=== PATIENT | female | born 1990 | race Caucasian/White ===

== ENCOUNTER → 2017-09-22 11:59 | Outpatient (CLI) | payer OTHER, SELFPAY ==
--- NOTE | 2017-09-22 12:25 | XR_ITS ---
XR chest 2V HISTORY: Follow-up abnormal chest x-ray ITS.REASON: ABNORMAL CHEST XRAY ORDERING PHYSICIAN: Edgard Mccarthy MD PATIENT AGE: 27 years COMPARISON: None available FINDINGS: The cardiomediastinal silhouette and pulmonary vascularity are within normal limits. The lungs are clear without infiltrates, suspicious nodules, or pleural effusions. Their main the densely calcified nodule in the left lower lobe superiorly consistent with a granuloma or hamartoma unchanged No acute bony abnormalities. IMPRESSION: No acute finding. No change partial calcified nodule in the left midlung
[2017-09-22 14:11] LABS: Free Thyroxine Index 2.7 ug/dL (5.93-13.13); T4 (Thyroxine) 8.7 ug/dl (4.7-13.3); Thyroid Stimulating Hormone 1.59 uIU/ml (0.358-3.740); Triiodothryronine (T3) Uptake 31 % (31-39)
[2017-09-25 17:10] LABS: LH 9.1 mIU/mL (.)
== END ==
PROVIDERS: PCP Physician Assistant; Visit Provider Nurse Practitioner Obstetrics & Gynecology
DX: N92.6 Irregular menstruation, unspecified (principal); R93.8 Abnormal findings on diagnostic imaging of other specified body structures
CPT/HCPCS: 36415; 71046; 83001; 83002; 84436; 84443; 84479

== ENCOUNTER → 2019-05-12 11:04 | Outpatient (CLI) | payer OTHER, SELFPAY ==
[2019-05-12 11:32] LABS: Basophils % 0.5 % (0.1-2.0); Eosinophils # 0.1 K/mm3 (0.0-0.4); Eosinophils % 1.7 % (0.1-12.0); Hematocrit 41.7 % (37.0-47.0); Hemoglobin 14.1 g/dL (12.2-16.2); Lymphocytes # 2.1 K/mm3 (0.7-4.5); Lymphocytes % 33.8 % (10-50); Mean Corpuscular HGB Conc 33.7 g/dL (31.8-35.4); Mean Corpuscular Hemoglobin 32.1 pg (27.0-31.2); Mean Corpuscular Volume 95.2 fl (81-99); Mean Platelet Volume 7.6 fl (7.4-10.4); Monocytes # 0.4 K/mm3 (0.1-1.0); Monocytes % 5.9 % (1.7-9.3); Neutrophils # 3.6 K/mm3 (1.8-7.8); Neutrophils % 58.1 % (37.0-80.0); Platelet Count 218 K/mm3 (142-424); Red Blood Count 4.38 M/mm3 (4.20-5.40); Red Cell Distribution Width 12.4 % (11.5-17.5); White Blood Count 6.2 K/mm3 (4.8-10.8)
[2019-05-12 15:13] LABS: Alanine Aminotransferase 37 U/L (12-78); Albumin/Globulin Ratio 1.2 (1.1-1.8); Alkaline Phosphatase 47 U/L (46-116); Anion Gap 11.2 mEq/L (5-15); Aspartate Amino Transferase 25 U/L (15-37); Bilirubin,Total 0.4 mg/dL (0.2-1.0); Blood Urea Nitrogen 10 mg/dL (7-18); Calcium 9.2 mg/dL (8.5-10.1); Carbon Dioxide 28 mmol/L (21.0-32.0); Chloride 104 mmol/L (98-107); Creatinine,Serum 0.85 mg/dL (0.55-1.02); Estimated Glomerular Filt Rate 80 ml/min (>60); Free Thyroxine Index 3.3 ug/dL (5.93-13.13); GFR (African American) 96 ML/MIN (>60); Globulin 3.4 gm/dl (1.3-3.2); Glucose 82 mg/dL (74-106); Potassium 4.2 mmoL/L (3.5-5.1); Sodium 139 mmol/L (136-145); T4 (Thyroxine) 10.4 ug/dl (4.7-13.3); Total Protein,Serum 7.4 gm/dL (6.4-8.2); Triiodothryronine (T3) Uptake 32 % (31-39)
[2019-05-13 14:22] LABS: Rapid Plasma Reagin Ab Titer Non Reactive (NonRea<1:1)
== END ==
PROVIDERS: Visit Provider Nurse Practitioner Obstetrics & Gynecology
DX: B19.20 Unspecified viral hepatitis C without hepatic coma (principal); N92.6 Irregular menstruation, unspecified; R53.82 Chronic fatigue, unspecified
CPT/HCPCS: 36415; 80053; 84436; 84443; 84479; 85025; 86592

== ENCOUNTER → 2019-05-17 14:49 | Outpatient (CLI) | payer OTHER, SELFPAY ==
--- NOTE | 2019-05-17 14:49 | US_ITS ---
PROCEDURE: US TRANSVAGINAL CLINICAL INDICATION: Heavy Bleeding Dysfunctional uterine bleeding COMPARISON: No exams were available for comparison TECHNIQUE: FINDINGS: The uterus is 9 x 5 x 6.4 cm with a combined endometrial thickness of 13 mm. No uterine mass is evident. The left ovary is 2.5 x 2 cm and has an unremarkable appearance. The right ovary is 2.9 x 2.3 cm with a few small follicles. No cul-de-sac fluid evident. IMPRESSION: Bulky uterus with mildly thickened endometrium otherwise negative Dictated by: Phi Ghosh MD 05/17/2019 17:08 Signed by: <Electronically signed by Phi Ghosh MD in [place]> 05/17/2019 17:08
== END ==
PROVIDERS: PCP Family Medicine; Visit Provider Nurse Practitioner Obstetrics & Gynecology
DX: N85.2 Hypertrophy of uterus (principal); N92.6 Irregular menstruation, unspecified
CPT/HCPCS: 76830

== ENCOUNTER → 2019-05-24 08:11 | Outpatient (CLI) | payer OTHER, SELFPAY ==
[2019-05-24 13:34] LABS: Basophils % 0.7 % (0.1-2.0); Eosinophils # 0.2 K/mm3 (0.0-0.4); Eosinophils % 2.9 % (0.1-12.0); Hematocrit 38.7 % (37.0-47.0); Lymphocytes # 1.7 K/mm3 (0.7-4.5); Lymphocytes % 31.4 % (10-50); Mean Corpuscular HGB Conc 33.5 g/dL (31.8-35.4); Mean Corpuscular Hemoglobin 31.9 pg (27.0-31.2); Mean Corpuscular Volume 95.1 fl (81-99); Mean Platelet Volume 7.9 fl (7.4-10.4); Monocytes # 0.4 K/mm3 (0.1-1.0); Monocytes % 6.7 % (1.7-9.3); Neutrophils # 3.2 K/mm3 (1.8-7.8); Neutrophils % 58.4 % (37.0-80.0); Platelet Count 210 K/mm3 (142-424); Red Blood Count 4.07 M/mm3 (4.20-5.40); Red Cell Distribution Width 12.5 % (11.5-17.5); White Blood Count 5.5 K/mm3 (4.8-10.8)
[2019-05-24 13:50] LABS: Alanine Aminotransferase 41 U/L (12-78); Albumin Level 3.6 gm/dL (3.4-5.0); Albumin/Globulin Ratio 1.1 (1.1-1.8); Alkaline Phosphatase 51 U/L (46-116); Anion Gap 12.6 mEq/L (5-15); Aspartate Amino Transferase 23 U/L (15-37); Bilirubin,Total 0.2 mg/dL (0.2-1.0); Blood Urea Nitrogen 13 mg/dL (7-18); Calcium 8.6 mg/dL (8.5-10.1); Carbon Dioxide 27 mmol/L (21.0-32.0); Chloride 105 mmol/L (98-107); Creatinine,Serum 0.84 mg/dL (0.55-1.02); Estimated Glomerular Filt Rate 80 ml/min (>60); GFR (African American) 97 ML/MIN (>60); Globulin 3.3 gm/dl (1.3-3.2); Glucose 84 mg/dL (74-106); Potassium 3.6 mmoL/L (3.5-5.1); Sodium 141 mmol/L (136-145); Total Protein,Serum 6.9 gm/dL (6.4-8.2)
== END ==
PROVIDERS: PCP Family Medicine; Visit Provider Nurse Practitioner Family
DX: F11.20 Opioid dependence, uncomplicated (principal)
CPT/HCPCS: 36415; 80053; 85025

== ENCOUNTER 2022-09-17 13:04 | Emergency (ER) | payer MEDICAID, SELFPAY ==
--- NOTE | 2022-09-17 13:28 | EXP.UTC ---
Discharge Plan Disposition Patient Disposition: Home, Self-Care Condition: Good Prescriptions Prescriptions: New azithromycin [Zithromax] 250 mg tablet 250 mg PO UD DOSE PK Qty: 6 0RF Rx Instructions: Take two (2) tablets today, then one (1) tablet days #2 thru #5 benzonatate [benzonatate] 100 mg capsule 100 mg PO TIDP PRN (Reason: Cough) Qty: 30 0RF methylprednisolone 4 mg Tablets,Dose Pack 4 mg PO DIRECTED Qty: 21 0RF No Action prenat.vits,zohra,[id number] Tablet 1 tab PO DAILY 30 Days Qty: 30 11RF buprenorphine-naloxone [Suboxone] 8-2 mg film SUBLINGUAL QID ibuprofen 600 MG tablet 600 mg PO Q6HP PRN (Reason: Mild Pain) Qty: 30 0RF Referrals Follow up/Referrals: Griffin Martell MD [Primary Care Provider] - See instructions Activity Restrictions/Add. Instructions Additional Instructions/Restrictions: Drink plenty of fluids. Take tylenol or ibuprofen for pain or fever. Take the medications as directed. Follow up with your regular doctor. GO TO THE ER FOR ANY WORSENING SYMPTOMS Make sure you follow up with your primary care provider in 1 to 2 weeks for a recheck. Clinical Impressions Clinical Impression: Bronchitis, Pleurisy, Pleural effusion Stand Alone Forms Stand Alone Forms: Work/School Release Discharge ED Provider: Devin Richardson [facility] General Stated complaint: lung pain towards back Time Seen by Provider: 09/17/22 13:28 History of Present Illness Provider Complaint: She states that for the past 2 days she has chest congestion and pain with deep breathing and coughing. Related Data Home Medications Medication Instructions Recorded Confirmed buprenorphine 8 mg-naloxone 2 mg each sublingual QID 09/22/17 05/12/19 sublingual film (Suboxone) Previous Rx's Medication Instructions Recorded ibuprofen 600 mg tablet 600 mg PO Q6HP PRN Mild Pain #30 12/24/18 tabs prenat.vits,zohra,exa-siiy-jtciv 1 tab PO DAILY 30 days #30 tabs 05/12/19 azithromycin 250 mg tablet 250 mg PO UD DOSE PK #6 tabs 09/17/22 (Zithromax) benzonatate 100 mg capsule 100 mg PO TIDP PRN Cough #30 caps 09/17/22 methylprednisolone 4 mg tablets in 4 mg PO DIRECTED #21 tabs 09/17/22 a dose pack Allergies Allergy/AdvReac Type Severity Reaction Status Date / Time promethazine [From Phenergan] Allergy Nausea and Verified 09/17/22 13:57 [facility] Disclaimer: The information contained in this section may have been updated after the patient was seen, as this information can be updated by other users. Social History Smoking Status: Current every day smoker tobacco type: cigarettes packs per day: 1 alcohol intake: never substance use type: former substance user current occupational status: employed Travel in the last 8 weeks: None ROS Obtained: Yes All systems reviewed & no additional complaints except as documented Constitutional Constitutional: Denies chills and Denies fever(s) Eyes Eyes: Denies eye discharge ENT Ears, Nose, Mouth, and Throat: Reports as per HPI Cardiovascular Cardiovascular: Denies chest pain Respiratory Respiratory: Denies chest congestion and Reports cough Gastrointestinal Gastrointestingal: Reports nausea; Denies abdominal pain, constipation, cramping, diarrhea or vomiting Musculoskeletal Musculoskeletal: Denies arthralgias Integumentary/Breasts Skin/Breast: Denies rash Neurologic Neurologic: Denies paresthesias Physical Exam General General appearance: alert and in no apparent distress Head Head exam: atraumatic, normocephalic and normal inspection Eye Eye exam: Present normal appearance, PERRL and EOMI ENT ENT exam: Present mucous membranes moist and normal external ear exam Expanded ENT Exam TM/Canal exam: Bilateral TM: erythema and bulging Nose exam: Absent sinus tenderness Mouth exam: Present normal external inspection; Absent drooling Teeth exam: Present normal inspection
[2022-09-17 13:30] VITALS: BP 122/79; PULSE 79; RESP 19; TEMP 36.9; O2SAT 95; BMI 21.3
--- NOTE | 2022-09-17 13:31 | XR_ITS ---
PROCEDURE INFORMATION: Exam: XR Chest Exam date and time: 09/17/2022 1:45 PM Age: 32 years old Clinical indication: Left-sided; Patient HX: Smoker, patient states left side chest pain and also back, pain with breathing and patient states she can't lay on her left side TECHNIQUE: Imaging protocol: Radiologic exam of the chest. Views: 2 views. COMPARISON: CR CXR2V XR chest 2V 09/22/2017 12:32 PM FINDINGS: Lungs: Bilateral hyperinflation is present. Atelectasis and/or early infiltrative changes noted within the left lung base. Calcified nodule again noted within the left lower lobe is unchanged. Pleural spaces: Left pleural effusion. Heart/Mediastinum: Unremarkable. No cardiomegaly. Bones/joints: Unremarkable. IMPRESSION: 1. Bilateral hyperinflation is present. 2. Left pleural effusion. 3. Atelectasis and/or early infiltrative changes noted within the left lung base. 4. Calcified nodule again noted within the left lower lobe is unchanged.
[2022-09-17 14:28] VITALS: BP 122/79; PULSE 79; RESP 19; TEMP 36.9; O2SAT 95
== END 2022-09-17 14:28 | disposition home or self-care (01) ==
PROVIDERS: Emergency Provider Nurse Practitioner Family; PCP Emergency Medicine
DX: J40 Bronchitis, not specified as acute or chronic (principal)
CPT/HCPCS: 71046; 99212; 99213; G0463